=== PATIENT | male | born 1980 ===

== ENCOUNTER 2018-06-13 16:34 | Inpatient (IN) | payer OTHER ==
[2018-06-13] MEDS ORDERED: Sodium Chloride 0.9% 1,000 ML IV STA (17:19)
--- NOTE | 2018-06-13 17:39 | ED PDOC ---
HPI: Abdomen Time Seen by Provider: 06/13/18 16:53 Chief Complaint (Nursing): Abdominal Pain Chief Complaint (Provider): Abdominal Pain History Per: Patient History/Exam Limitations: no limitations Onset/Duration Of Symptoms: Hrs (x20), Sudden Onset Severity: Severe Location Of Pain/Discomfort: Other (Mid abdominal pain) Additional Complaint(s): 37 years old male with no PMHx presents to ER for evaluation of a sudden onset severe mid abdominal pain onset 9 pm last night. Patient reports throughout the night he was trying to get himself to vomit and have bowel movement but states he had minimal amount of both. He reports he felt better when he woke up this morning but while at work he tried to eat a chicken soup and water which caused worsening of pain. Patient states he developed right upper quadrant pain and reports he went to urgent care center where they told him to come to the ER for further evaluation. Patient reports he is from [facility] and is here for work. He states this is his last week here. Patient denies any sick contact. PMD: in [place] Past Medical History Reviewed: Historical Data, Nursing Documentation, Vital Signs Vital Signs: Last Vital Signs Temp 99.3 F 06/13/18 16:40 Pulse 101 H 06/13/18 16:40 Resp 18 06/13/18 16:40 BP 149/82 06/13/18 16:40 Pulse Ox 98 06/13/18 16:40 - Medical History PMH: No Chronic Diseases - Surgical History Other surgeries: Saphenous vein resection - Family History Family History: States: Unknown Family Hx - Social History Current smoker - smoking cessation education provided: No Alcohol: Social Drugs: Denies - Allergies Allergies/Adverse Reactions: Allergies Allergy/AdvReac Type Severity Reaction Status Date / Time No Known Allergies Allergy Verified 06/13/18 16:39 Review of Systems ROS Statement: Except As Marked, All Systems Reviewed And Found Negative Gastrointestinal: Positive for: Vomiting, Abdominal Pain Physical Exam - Reviewed Nursing Documentation Reviewed: Yes (Right lower quadrant) Vital Signs Reviewed: Yes - Physical Exam Appears: Positive for: In Acute Distress (mild painful) Head Exam: Positive for: ATRAUMATIC, NORMOCEPHALIC Skin: Positive for: Warm, Dry Eye Exam: Positive for: EOMI, PERRL ENT: Negative for: Pharyngeal Erythema, Tonsillar Exudate Neck: Positive for: Painless ROM, Supple Cardiovascular/Chest: Positive for: Regular Rate, Rhythm. Negative for: Murmur Respiratory: Positive for: Normal Breath Sounds. Negative for: Respiratory Distress Gastrointestinal/Abdominal: Positive for: Tenderness, Other (Positive Mcburneys sign. Negative psoas and obturator sign and Paige's sign ). Negative for: Mass, Guarding, Rebound Back: Positive for: Normal Inspection Extremity: Positive for: Normal ROM. Negative for: Deformity Neurologic/Psych: Positive for: Alert, Oriented (x3). Negative for: Motor/Sensory Deficits - Laboratory Results Result Diagrams: 06/13/18 17:35 06/13/18 17:35 - ECG O2 Sat by Pulse Oximetry: 98 (RA) Pulse Ox Interpretation: Normal Medical Decision Making Medical Decision Making: Time: 1718 Initial Impression: Abdominal pain. Differential includes but not limited to appendicitis, mesenteric adenitis, gastroenteritis and colitis. Initial Plan: --Type and screen --VBG Shock Panel --CT Abd/Pelvis --CMP --Urine dipstick --CBC --Dextrose 1,000 ml IV 100 mls/hr --Morphine 2 mg IVP --NaCl 1,[address] Abd/Pelvis FINDINGS: LUNG BASES: The lung bases appear clear. No pleural effusions are seen. LIVER: There is hepatomegaly. The liver measured an estimated 19.0 cm in the midclavicular line. Associated mild hepatic steatosis is present. GALLBLADDER AND BILE DUCTS: The gallbladder appears within normal limits. No radioopaque gallstones are seen. No biliary ductal dilatation is evident. PANCREAS: Unremarkable. SPLEEN: Unremarkable. ADRENAL GLANDS: Unremarkable. KIDNEYS, URETERS, AND BLADDER: The kidneys appear within normal limits. There is no hydronephrosis or hydroureter. No urinary calculi are seen. The urinary bladder is normal in size and configuration. STOMACH AND BOWEL: Unremarkable appearance of the stomach. No evidence of bowel obstruction. There is mild mucosal wall thickening and fluid filling of the ileal small intestinal tract thought compatible with enteritis. Infectious or inflammatory etiologies are thought most likely.No evidence suggesting colitis. APPENDIX: There is mucosal wall thickening and periappendiceal haziness noted involving the appendix. The appendix is fluid dilated up to 1.2 cm in transverse diameter. These findings are compatible with acute appendicitis. PERITONEUM: No free fluid. No free air. LYMPH NODES: No lymphadenopathy is evident. REPRODUCTIVE: Unremarkable as visualized. VASCULATURE: No evidence of abdominal aortic aneurysm. BONES: No aggressive appearing osseous lesion. No acute osseous pathology evident. Bilateral pars defects are noted within L5. No spondylolisthesis is evident. IMPRESSION: 1. Evidence of acute appendicitis. 2. Evidence of mild ileitis. 3. Hepatomegaly with associated steatosis. 4. Bilateral pars defects within L5. No spondylolisthesis. 2015 Discussed with surgical scrub technologist. Pt to be admitted to surgery service. Scribe Attestation: Documented by Yohana Howard, acting as a scribe for Greta Dior MD. Provider Scribe Attestation: All medical record entries made by the Scribe were at my direction and personally dictated by me. I have reviewed the chart and agree that the record accurately reflects my personal performance of the history, physical exam, medical decision making, and the department course for this patient. I have also personally directed, reviewed, and agree with the discharge instructions and disposition. Disposition - Clinical Impression Clinical Impression: Appendicitis Counseled Patient/Family Regarding: Studies Performed, Diagnosis - Disposition Disposition Time: 20:00 Condition: FAIR - Pt Status Changed To: Hospital Disposition Of: Inpatient - Admit Certification Admit to Inpatient:: After my assessment, the patient will require hospitalization for at least two midnights. This is because of the severity of symptoms shown, intensity of services needed, and/or the medical risk in this patient being treated as an outpatient. - POA Present On Arrival: None
[2018-06-13 17:51] LABS: BASO # 0.1 K/uL (0.0-0.2); EOS # 0.1 K/uL (0.0-0.7); EOS % 0.5 % (0.0-4.0); HEMOGLOBIN 15.3 g/dL (12.0-18.0); LYMPH # 3.6 K/uL (1.0-4.3); LYMPH % 23.7 % (20.0-40.0); MEAN CELL VOLUME 88.7 fl (80.0-94.0); MEAN CORPUSCULAR HEMOGLOBIN 29.3 pg (27.0-31.0); MEAN CORPUSCULAR HGB CONC 33.1 g/dL (33.0-37.0); MEAN PLATELET VOLUME 8.9 fl (7.2-11.7); MONO # 1.5 K/uL (0.0-0.8); MONO % 10.1 % (0.0-10.0); NEUT # 9.8 K/uL (1.8-7.0); NEUT % 64.7 % (50.0-75.0); NRBC % 0.1 % (0.0-0.0); RBC 5.2 Mil/uL (4.40-5.90); RED CELL DISTRIBUTION WIDTH 12.9 % (11.5-14.5); WHITE BLOOD COUNT 15.2 K/uL (4.8-10.8)
[2018-06-13 18:03] LABS: ALB/GLOB RATIO 1.4 (1.0-2.1); ALT/SGPT 47 U/L (21-72); AST/SGOT 31 U/L (17-59); BLOOD UREA NITROGEN 18 mg/dl (9-20); CALCIUM 9.9 mg/dL (8.4-10.2); GFR NON-AFRICAN AMERICAN 57
[2018-06-13] MEDS ORDERED: Iodixanol 320 MG/ML 100 ML BOTTLE IV ONE (18:39)
[2018-06-13] MEDS ORDERED: Sodium Chloride 0.9% 50 ML IV ONE (18:39)
[2018-06-13] MEDS ORDERED: Piperacillin/Tazobact 3.375 GM in Sodium Chloride 0.9% 100 ML IV STA (20:14)
--- NOTE | 2018-06-13 21:49 | CP.PCM.HP ---
History of Present Illness - History of Present Illness History of Present Illness: Surgery H&P- Dr. Wise 37M no significant pmhx presents to [facility] ED w/ sharp clayton-umbilical migrating to RLQ abdominal pain that started 1 day ago after eating food. Associated nausea, no vomiting. Denies changes in bowel habits. Of note, patient is traveling for business from [facility]. Denies fevers, chills, chest pain, shortness of breath, changes in urinary, bowel habits. 12 pt ROS conducted, negative otherwise stated above PMH: Hemorrhoids PSH: denies ALL: nkda SocialHx: social tobacco, etoh use. Denies recreational drug use FH: non-contributory Present on Admission - Present on Admission Any Indicators Present on Admission: No Review of Systems - Review of Systems All systems: reviewed and no additional remarkable complaints except - Constitutional Constitutional: As Per HPI Past Patient History - Past Social History Alcohol: Social Drugs: Denies - PSYCHIATRIC Hx Substance Use: No Meds Home Medications: Home Medication List Medication Instructions Recorded Confirmed Type Ibuprofen [Motrin] 400 mg PO Q6 #30 tab 06/15/18 Rx levoFLOXacin [Levaquin] 500 mg PO DAILY #7 tab 06/15/18 Rx metroNIDAZOLE [Flagyl] 500 mg PO BID #14 tab 06/15/18 Rx Allergies/Adverse Reactions: Allergies Allergy/AdvReac Type Severity Reaction Status Date / Time No Known Allergies Allergy Verified 06/13/18 16:39 Physical Exam - Constitutional Appears: Non-toxic, No Acute Distress - Head Exam Head Exam: ATRAUMATIC - Eye Exam Eye Exam: EOMI. absent: Scleral icterus - ENT Exam ENT Exam: Mucous Membranes Dry - Respiratory Exam Respiratory Exam: NORMAL BREATHING PATTERN. absent: Accessory Muscle Use, Respiratory Distress - Cardiovascular Exam Cardiovascular Exam: REGULAR RHYTHM. absent: Bradycardia, Tachycardia - GI/Abdominal Exam GI & Abdominal Exam: Normal Bowel Sounds, Soft, Tenderness (+ Rovsings, + Mcburneys, + Psoas, + rebound). absent: Distended, Firm, Rigid - Extremities Exam Extremities exam: Negative for: calf tenderness - Back Exam Back exam: absent: CVA tenderness (L), CVA tenderness (R) - Neurological Exam Neurological exam: Alert, Oriented x3 - Skin Skin Exam: Intact, Warm Results - Vital Signs Recent Vital Signs: Last Vital Signs Temp 99.3 F 06/13/18 16:40 Pulse 101 H 06/13/18 16:40 Resp 18 06/13/18 16:40 BP 149/82 06/13/18 16:40 Pulse Ox 98 06/13/18 20:27 - Labs Result Diagrams: 06/14/18 06:30 06/14/18 06:30 Labs: Laboratory Results - last 24 hr 06/13/18 06/13/18 17:35 17:35 WBC 15.2 H RBC 5.20 Hgb 15.3 Hct 46.1 MCV 88.7 MCH 29.3 MCHC 33.1 RDW 12.9 Plt Count 226 MPV 8.9 Neut % (Auto) 64.7 Lymph % (Auto) 23.7 [place] % (Auto) 10.1 H Eos % (Auto) 0.5 Baso % (Auto) 1.0 Neut # (Auto) 9.8 H Lymph # (Auto) 3.6 [place] # (Auto) 1.5 H Eos # (Auto) 0.1 Baso # (Auto) 0.1 Sodium 138 Potassium 4.0 Chloride 96 L Carbon Dioxide 27 Anion Gap 19 BUN 18 Creatinine 1.4 Est GFR ( Amer) > 60 Est GFR (Non-Af Amer) 57 Random Glucose 96 Calcium 9.9 Total Bilirubin 1.9 H AST 31 ALT 47 Alkaline Phosphatase 61 Total Protein 8.5 H Albumin 5.0 Globulin 3.6 Albumin/Globulin Ratio 1.4 Assessment & Plan - Assessment and Plan (Free Text) Assessment: 37M w/ Acute Appendicitis Plan: - NPO - IVF/Abx - Plan for Appendectomy tomorrow - analgesia and anti-emetic PRN - discussed w/ Dr[facility]
[2018-06-13] MEDS ORDERED: HYDROmorphone 0.5 mg/0.5 ml ISec IVP PRN (21:55)
[2018-06-13] MEDS ORDERED: Lactated Ringer's 1,000 ML IV SCH (22:00)
[2018-06-13] MEDS ORDERED: Piperacillin/Tazobact 3.375 gm Inj IVPB ONE (22:30)
[2018-06-13 22:37] LABS: INR 1.2; PROTHROMBIN TIME 13.4 Seconds (9.8-13.1)
[2018-06-13 22:40] LABS: PARTIAL THROMBOPLASTIN TIME 34.6 Seconds (25.6-37.1)
[2018-06-13] MEDS: Piperacillin/Tazobact 4.5 GM in Sodium Chloride 0.9% 100 ML IVPB SCH (22:51)
[2018-06-13] MEDS: Lactated Ringer's 1,000 ML IV SCH (22:55)
[2018-06-14] MEDS: Lactated Ringer's 1,000 ML IV SCH ×5 (01:08→18:03)
[2018-06-14] MEDS: Piperacillin/Tazobact 4.5 GM in Sodium Chloride 0.9% 100 ML IVPB SCH ×5 (04:41→22:00)
[2018-06-14 07:45] LABS: BASO % 0.3 % (0.0-2.0); EOS # 0.1 K/uL (0.0-0.7); EOS % 1.2 % (0.0-4.0); HEMOGLOBIN 14.4 g/dL (12.0-18.0); LYMPH # 2.8 K/uL (1.0-4.3); LYMPH % 30.9 % (20.0-40.0); MEAN CELL VOLUME 88.9 fl (80.0-94.0); MEAN CORPUSCULAR HEMOGLOBIN 29.8 pg (27.0-31.0); MEAN CORPUSCULAR HGB CONC 33.5 g/dL (33.0-37.0); MEAN PLATELET VOLUME 8.8 fl (7.2-11.7); MONO # 0.9 K/uL (0.0-0.8); MONO % 10.2 % (0.0-10.0); NEUT # 5.2 K/uL (1.8-7.0); NEUT % 57.4 % (50.0-75.0); NRBC % 0.1 % (0.0-0.0); RBC 4.85 Mil/uL (4.40-5.90); RED CELL DISTRIBUTION WIDTH 12.9 % (11.5-14.5); WHITE BLOOD COUNT 9.1 K/uL (4.8-10.8)
[2018-06-14 07:55] LABS: BLOOD UREA NITROGEN 14 mg/dl (9-20); CALCIUM 9.1 mg/dL (8.4-10.2); GFR NON-AFRICAN AMERICAN 57
--- NOTE | 2018-06-14 11:27 | CARD ---
APPROVED REPORT Date of service: 06/13/2018 EKG Measurement Heart [id number] HI [id number] [id number] <Conclusion> Normal sinus rhythm Normal Electrocardiogram
--- NOTE | 2018-06-14 12:48 | RAD ---
Date of service: 06/13/2018 HISTORY: preop COMPARISON: No prior. FINDINGS: LUNGS: Apical lordotic projection. No interval pulmonary disease appreciated bilaterally. . PLEURA: No significant pleural effusion identified, no pneumothorax apparent. CARDIOVASCULAR: No aortic atherosclerotic calcification present. Normal cardiac size. No pulmonary vascular congestion. OSSEOUS STRUCTURES: No significant abnormalities. VISUALIZED UPPER ABDOMEN: Normal. OTHER FINDINGS: None. IMPRESSION: No acute cardiopulmonary disease appreciated.
[2018-06-14] MEDS ORDERED: Bupivacaine 0.5% Inj(30mL) ONE (13:24)
[2018-06-14] MEDS ORDERED: Lidocaine 1% w Epi 1:100,000 Inj ONE (13:24)
[2018-06-14] MEDS ORDERED: Propofol 10 mg/ml Inj (20 ML) ONE (13:39)
[2018-06-14] MEDS ORDERED: Midazolam 2 MG/2 ML VIAL ONE (13:39)
[2018-06-14] MEDS ORDERED: Lidocaine 4% (Laryng-O-Jet) Kit MM ONE (13:40)
[2018-06-14] MEDS ORDERED: Succinylcholine Chloride 20 mg/ml Syr (5 ml) IV ONE ×2 (13:40→14:28)
[2018-06-14] MEDS ORDERED: Rocuronium 10 mg/ml (5 ml) ONE (13:40)
[2018-06-14] MEDS ORDERED: Lactated Ringer's 1,000 ML IV ONE (14:05)
--- NOTE | 2018-06-14 14:29 | CT ---
Date of service: 06/13/2018 PROCEDURE: CT Abdomen and Pelvis with contrast HISTORY: RLQ pain COMPARISON: None. TECHNIQUE: Contrast dose: 95 mL Visipaque 320 Radiation dose: Total exam DLP = 915.35 mGy-cm. This CT exam was performed using one or more of the following dose reduction techniques: Automated exposure control, adjustment of the mA and/or kV according to patient size, and/or use of iterative reconstruction technique. FINDINGS: LOWER THORAX: Unremarkable. LIVER: Unremarkable. No gross lesion or ductal dilatation. GALLBLADDER AND BILE DUCTS: Unremarkable. PANCREAS: Unremarkable. No gross lesion or ductal dilatation. SPLEEN: Unremarkable. ADRENALS: Unremarkable. No mass. KIDNEYS AND URETERS: Unremarkable. No hydronephrosis. No solid mass. VASCULATURE: Unremarkable. No aortic aneurysm. No aortic atherosclerotic calcification or mural plaque present. BOWEL: No bowel obstruction. Scattered colonic diverticula. No evidence of diverticulitis. No other abnormal bowel loops. APPENDIX: The appendix is distended with fluid up to a diameter of approximately 12 mm. There is periappendiceal inflammatory change noted. These findings are consistent with acute appendicitis. There is no periappendiceal abscess. There is no free air. There is no appendicoliths identified. PERITONEUM: Unremarkable. No free fluid. No free air. LYMPH NODES: Unremarkable. No enlarged lymph nodes. BLADDER: Unremarkable. REPRODUCTIVE: Normal prostate BONES: No acute fracture. Minimal (grade 1) anterolisthesis at L5-S1 with bilateral L5 pars defects. OTHER FINDINGS: None. IMPRESSION: Findings consistent with acute uncomplicated appendicitis. No abscess or free air appreciated. No other acute abnormality. Minor findings as above. The preliminary findings for this examination were reported by [facility] at 7:58 p.m. on 06/13/2018. There is concurrence of this report with the preliminary findings.
[2018-06-14] MEDS ORDERED: Neostigmine 1:1000 (1 mg/ml) Inj ONE (14:55)
[2018-06-14] MEDS ORDERED: Lactated Ringer's 500 ML IV ONE (15:00)
[2018-06-14] MEDS ORDERED: Oxycodone/Acetaminophen 5/325 mg Tab PO PRN (15:36)
--- NOTE | 2018-06-14 15:36 | PCM.SURG1 ---
Surgeon's Initial Post Op Note - Surgeon's Notes Surgeon: Dr. Wise News Camera Operator: Dr. Mackey PGY3, Dr. White PGY4 Type of Anesthesia: General Endo Anesthesia Administered By: Dr. Mckeon Pre-Operative Diagnosis: Acute appendicitis Operative Findings: Acute appendicitis Post-Operative Diagnosis: Acute appendicitis Operation Performed: Laparoscopic appendectomy Specimen/Specimens Removed: Appendix Estimated Blood Loss: EBL {In ML}: 5 Blood Products Given: N/A Drains Used: No Drains Post-Op Condition: Good Date of Surgery/Procedure: 06/14/18 Time of Surgery/Procedure: 15:35
[2018-06-14] MEDS ORDERED: HYDROmorphone 0.5 mg/0.5 ml ISec IVP PRN (15:39)
[2018-06-14] MEDS ORDERED: Dexamethasone 4 mg/1 ml IVP PRN (15:39)
[2018-06-15] MEDS: Lactated Ringer's 1,000 ML IV SCH (00:32)
[2018-06-15] MEDS: Piperacillin/Tazobact 4.5 GM in Sodium Chloride 0.9% 100 ML IVPB SCH (04:56)
--- NOTE | 2018-06-15 05:52 | CP.PCM.DIS ---
Provider - Provider Date of Admission: 06/13/18 20:44 Attending physician: Ney Wise MD Time Spent in preparation of Discharge (in minutes): 35 Diagnosis - Discharge Diagnosis (1) Appendicitis Status: Acute Hospital Course - Lab Results Lab Results: Most Recent Lab Values WBC 9.1 K/uL (4.8-10.8) 06/14/18 06:30 RBC 4.85 Mil/uL (4.40-5.90) 06/14/18 06:30 Hgb 14.4 g/dL (12.0-18.0) 06/14/18 06:30 Hct 43.1 % (35.0-51.0) 06/14/18 06:30 MCV 88.9 fl (80.0-94.0) 06/14/18 06:30 MCH 29.8 pg (27.0-31.0) 06/14/18 06:30 MCHC 33.5 g/dL (33.0-37.0) 06/14/18 06:30 RDW 12.9 % (11.5-14.5) 06/14/18 06:30 Plt Count 190 K/uL (130-400) 06/14/18 06:30 MPV 8.8 fl (7.2-11.7) 06/14/18 06:30 Neut % (Auto) 57.4 % (50.0-75.0) 06/14/18 06:30 Lymph % (Auto) 30.9 % (20.0-40.0) 06/14/18 06:30 [place] % (Auto) 10.2 % (0.0-10.0) H 06/14/18 06:30 Eos % (Auto) 1.2 % (0.0-4.0) 06/14/18 06:30 Baso % (Auto) 0.3 % (0.0-2.0) 06/14/18 06:30 Neut # (Auto) 5.2 K/uL (1.8-7.0) 06/14/18 06:30 Lymph # (Auto) 2.8 K/uL (1.0-4.3) 06/14/18 06:30 [place] # (Auto) 0.9 K/uL (0.0-0.8) H 06/14/18 06:30 Eos # (Auto) 0.1 K/uL (0.0-0.7) 06/14/18 06:30 Baso # (Auto) 0.0 K/uL (0.0-0.2) 06/14/18 06:30 PT 13.4 Seconds (9.8-13.1) H 06/13/18 22:20 INR 1.2 06/13/18 22:20 APTT 34.6 Seconds (25.6-37.1) 06/13/18 22:20 Sodium 138 mmol/l (132-148) 06/14/18 06:30 Potassium 3.8 MMOL/L (3.6-5.0) 06/14/18 06:30 Chloride 99 mmol/L (98-107) 06/14/18 06:30 Carbon Dioxide 25 mmol/L (22-30) 06/14/18 06:30 Anion Gap 18 (10-20) 06/14/18 06:30 BUN 14 mg/dl (9-20) 06/14/18 06:30 Creatinine 1.4 mg/dl (0.8-1.5) 06/14/18 06:30 Est GFR ( Amer) > 60 06/14/18 06:30 Est GFR (Non-Af Amer) 57 06/14/18 06:30 Random Glucose 95 mg/dL (75-110) 06/14/18 06:30 Calcium 9.1 mg/dL (8.4-10.2) 06/14/18 06:30 Total Bilirubin 1.9 mg/dl (0.2-1.3) H 06/13/18 17:35 AST 31 U/L (17-59) 06/13/18 17:35 ALT 47 U/L (21-72) 06/13/18 17:35 Alkaline Phosphatase 61 U/L (38-126) 06/13/18 17:35 Total Protein 8.5 G/DL (6.3-8.2) H 06/13/18 17:35 Albumin 5.0 g/dL (3.5-5.0) 06/13/18 17:35 Globulin 3.6 gm/dL (2.2-3.9) 06/13/18 17:35 Albumin/Globulin Ratio 1.4 (1.0-2.1) 06/13/18 17:35 - Hospital Course Hospital Course: Patient presented to the hospital on 06/13/18 with abdominal pain and a ct scan consistent with acute appendicitis, he was started on IV abx and the following day he was taken to the OR for a laparoscopic appendectomy. He had an uneventful recovery and is clear to go home on PO abx. Discharge Exam - Head Exam Head Exam: ATRAUMATIC, NORMOCEPHALIC - Eye Exam Eye Exam: EOMI, Normal appearance - Respiratory Exam Respiratory Exam: NORMAL BREATHING PATTERN - Cardiovascular Exam Cardiovascular Exam: REGULAR RHYTHM - GI/Abdominal Exam GI & Abdominal Exam: Soft, Tenderness. absent: Distended, Firm, Guarding, Hernia, Rebound, Rigid Additional comments: Inscion site well aproximated non erythematous non draining - Neurological Exam Neurological exam: Alert, Oriented x3 - Psychiatric Exam Psychiatric exam: Normal Affect, Normal Mood - Skin Skin Exam: Dry, Intact Discharge Plan - Discharge Medications Prescriptions: Ibuprofen [Motrin] 400 mg PO Q6 #30 tab levoFLOXacin [Levaquin] 500 mg PO DAILY #7 tab metroNIDAZOLE [Flagyl] 500 mg PO BID #14 tab - Follow Up Plan Condition: FAIR Disposition: HOME/ ROUTINE Patient education suggested?: Yes Instructions: Appendectomy, Laparoscopic Surgery (DC) Additional Instructions: No heavy lifting for 4 weeks nothing over 20lbs the next four weeks nothing over 40 lbs. OK to shower today no scrubbing with abrasives no bathing for two weeks or pools. If you develop worsening symptoms please call Dr. Wise or go to the ER. You will be discharged with pain medication and antibiotics take as directed.
[2018-06-15 08:19] VITALS: BP 124/74; PULSE 70; RESP 20; TEMP 98; O2SAT 94
--- NOTE | 2018-06-25 15:14 | OP ---
PROCEDURE DATE: 06/14/2018 PREOPERATIVE DIAGNOSES: 1. Acute appendicitis. 2. Incarcerated umbilical hernia. POSTOPERATIVE DIAGNOSES: 1. Acute appendicitis. 2. Incarcerated umbilical hernia. SURGERY: 1. Laparoscopic exploratory laparoscopy. 2. Laparoscopic enterolysis. 3. Laparoscopic appendectomy. 4. Repair of incarcerated umbilical hernia. SURGEON: Ney Wise MD ANESTHESIA: General endotracheal. ESTIMATED BLOOD LOSS: 5 mL INTRAVENOUS FLUIDS: 1 mL of Ringer's lactate. IMPLANTS: None. COMPLICATIONS: None. DRAINS: None. DISPOSITION: Stable, extubated to the recovery room. 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 The patient also experienced a low-grade fever. The patient came to the [facility] Emergency Room for further workup and care. On examination, he had a right lower quadrant guarding and tenderness and rebound. White blood count was elevated, and CT scan showed that he had appendicitis. Also, on physical examination, he was noted to have an incarcerated umbilical hernia. Based on these findings, the patient was taken emergently to the operating room for further surgical intervention. INTRAOPERATIVE FINDINGS: The patient had enlarged inflamed appendix apparent to the surrounding organs of cecum, omentum and the terminal ileum as well as the right pelvic wall with a small amount of cloudy fluid in the right paracolic gutter and right pelvis and also had incarcerated umbilical hernia with preperitoneal fat and omental contents. DESCRIPTION OF PROCEDURE: The patient was brought into the operating room, placed on the operating table in the supine position. After smooth induction of general endotracheal anesthesia, Venodyne boots were placed in both legs, and prophylactic IV antibiotics were given. The entire abdomen was prepped and draped in the usual sterile fashion. The infraumbilical area was infiltrated with local anesthetic, which comprised of 0.5% Marcaine and 1% lidocaine with epinephrine in equal volumes. An incision was performed with a 15-blade in the vertical fashion and was brought down to the subcutaneous tissue using Bovie electrocautery. Dissection continued until the umbilical hernia sac was identified inside and cleared its contents mainly preperitoneal fat and omentum were freed from its attachments to the umbilical hernia sac and returned back to the peritoneal cavity. A 0-Vicryl stitch was placed on each side of the incised fascia and a Hillary trocar was inserted under direct visualization. The obturator was removed and the port was connected with a CO2 tank, generating pneumoperitoneum up to 15 mmHg. The patient's position was changed to reverse Trendelenburg with the left side down exposing the right lower quadrant. A 10-mm 30-degree laparoscope and video camera were inserted and the abdomen was inspected. The appendix appeared to be partly concealed behind the cecum, the omentum and terminal ileum adherent to the right pelvic wall. A small amount of cloudy peritoneal fluid was also encountered. Two 5-mm ports were inserted in the lower abdomen in the suprapubic and the left lower quadrant area after infiltrating the skin with local anesthetic and incising it with #15-blade. Through the 5-mm ports, ____ and the 5-mm LigaSure were inserted and the appendix was freed from its attachments to the surrounding tissues and retracted upwards exposing the entire length as well as the mesoappendix. The mesoappendix was secured in a sequential fashion using 5-mm LigaSure and a AUGUST 45 blue stapler was fired across the base of the appendix. The specimen was placed in an Endobag, removed from the operating field and sent to pathology for appropriate label for permanent section. Copious amounts of warm normal saline were used to irrigate the abdomen which was completely aspirated. There was no evidence of bleeding from the mesoappendix or the appendiceal stump and no succus leak from the staple line. The infraumbilical port was removed and the fascia was closed with interrupted 0 Vicryl stitches in a tension-free fashion. The integrity of the fascia closure was checked by inserting a 5-mm 30-degree laparoscopic video camera through the suprapubic port. There was also ensured that there was no evidence of bleeding or bowel or omentum entrapment. The remaining two 5-mm ports were removed under direct laparoscopic visualization, and there was no evidence of bleeding from the port sites. All skin incisions were closed with a 4-0 continuous subcuticular Monocryl stitch and sterile dressings were applied. At the end of the surgery, the counts of the instruments, gauze, and needles were correct x2. The patient tolerated the surgery well and was transferred in stable condition to the recovery room. Ney Wise MD
== END 2018-06-15 16:15 | disposition home or self-care (01) | DRG 342 ==
LOC: H.ER 16:34 → H.ERHOLD 20:44 → H.MEDSURG1 06-14 00:47
PROVIDERS: ADMIT Specialist; ATTEND Specialist
PROC: 0WQF4ZZ Repair Abdominal Wall, Percutaneous Endoscopic Approach (ICD-10-PCS; 2018-06-14)
PROC: 0DTJ4ZZ Resection of Appendix, Percutaneous Endoscopic Approach (ICD-10-PCS; principal; 2018-06-14 12:30)
DX: K35.80 Unspecified acute appendicitis (principal); K42.0 Umbilical hernia with obstruction, without gangrene; K52.9 Noninfective gastroenteritis and colitis, unspecified; K64.9 Unspecified hemorrhoids; R16.0 Hepatomegaly, not elsewhere classified